=== PATIENT | female | born 1985 | race Hispanic/Latino ===

== ENCOUNTER → 2018-10-15 | Outpatient (REF) | payer BC ==
[~2018-10-15] MED LIST: AMOX/K CLAV875 M1 PO; CORTISPORIN OTI10 M2 AD; CYMBALTA30 MG PO; ERRIN0.35 MG PO; IBUPROFEN200 MG PO; INTEGRA F PO; LORTAB 7.57.5 MG/TAB OR; MACRODANTIN100 MG OR; NO HOME MEDS; PRENATAL1 TAB OR; ZOFRAN4 M1 OR; [UNRECOGNIZED DRUG - REMARK]
== END | disposition home or self-care (01) | DRG 607 ==
LOC: ULTRASND 13:26
PROVIDERS: ATTEND Internal Medicine
DX: R22.41 Localized swelling, mass and lump, right lower limb (principal)

== ENCOUNTER → 2018-10-25 | Outpatient (REF) | payer BC ==
[2018-10-25 10:11] VITALS: BP 121/73
== END | disposition home or self-care (01) | DRG 607 ==
LOC: FIORUCCI 09:44 → FIOURUCCI 09:45 → FIORUCCI 09:45
PROVIDERS: ATTEND Surgery
DX: R22.41 Localized swelling, mass and lump, right lower limb (principal)

== ENCOUNTER 2019-05-20 16:07 | Emergency (ER) | payer BC ==
[~2019-05-20] VITALS: Ht 157.5 cm; Wt 77.0 kg
[2019-05-20 18:04] VITALS: BP 126/82
== END 2019-05-20 18:04 | disposition home or self-care (01) | DRG 556 ==
LOC: ED 16:07
DX: M79.605 Pain in left leg (principal)

== ENCOUNTER 2021-05-25 10:05 | Emergency (ER) | payer BC ==
[~2021-05-25] VITALS: Ht 157.5 cm; Wt 70.5 kg
[2021-05-25 11:12] LABS: URINE BILIRUBIN - DIPSTICK NEGATIVE (NEGATIVE); URINE BLOOD DIPSTICK MODERATE (NEGATIVE); URINE COLOR YELLOW; URINE GLUCOSE - DIPSTICK NEGATIVE (NEGATIVE); URINE KETONE NEGATIVE (NEGATIVE); URINE LEUK ESTERASE NEGATIVE (NEGATIVE); URINE PROTEIN - DIPSTICK NEGATIVE (NEG-TRACE); URINE SPECIFIC GRAVITY <=1.005; URINE UROBILINOGEN - DIPSTICK 0.2 E.U./dL (0.2)
[2021-05-25 11:18] LABS: URINE NITRITE - DIPSTICK NEGATIVE (Negative)
[2021-05-25 11:19] LABS: URINE EPITHELIAL CELLS FEW EPI/hpf (0-FEW)
[2021-05-25 11:49] LABS: ALBUMIN 4.8 g/dL (3.2-5.0); ALKALINE PHOSPHATASE 72 u/l (38-126); AMYLASE 67 u/l (30-110); ANION GAP 16 (6-22 (CALC)); BUN 11 mg/dL (7-17); BUN/CREATININE RATIO 14 (12-20 (CALC)); CARBON DIOXIDE 26 mmol/l (22-30); CHLORIDE 99 mmol/l (95-108); CREATININE 0.8 mg/dL (0.5-1.0); GFR > 60 ML/MIN (>=60 (CALC)); GFR FOR AFR.AMER. > 60 ML/MIN (>=60 (CALC)); HEMATOCRIT 43.8 % (37.0-47.0); HEMOGLOBIN 14.6 g/dl (12.0-16.0); IMMATURE GRANULOCYTES 0.2 % (0.0-5.0); LIPASE 37 u/l (23-300); MEAN CELL VOLUME 90.3 fL CALC (80.0-100.0); MEAN CORPUSCULAR HGB 30.1 pG CALC (26.0-32.0); MEAN CORPUSCULAR HGB CONC 33.3 g/dL CAL (32.0-36.0); NEUT# 10.59 thou/uL (2.00-7.15); POTASSIUM 3.7 mmol/l (3.5-5.1); RED BLOOD COUNT 4.85 mill/uL (4.20-5.60); RED CELL DISTRI WIDTH 12.9 % (11.5-15.5); SGOT/AST 27 u/l (14-36); SODIUM 138 mmol/l (137-146); TOTAL PROTEIN 8.8 g/dL (6.3-8.2)
[2021-05-25 11:51] LABS: BILIRUBIN, TOTAL 0.8 mg/dL (0.0-1.4)
[2021-05-25] MEDS ORDERED: ULTRAM50 MG PO (13:09)
[2021-05-25] MEDS ORDERED: PROTONIX40 MG PO (13:09)
[2021-05-25] MEDS ORDERED: ZOFRAN4 MG/TAB PO (13:09)
[2021-05-25 13:37] VITALS: BP 111/73
== END 2021-05-25 13:11 | disposition home or self-care (01) | DRG 392 ==
LOC: ED 10:05
DX: K29.70 Gastritis, unspecified, without bleeding (principal); N83.201 Unspecified ovarian cyst, right side; R31.29 Other microscopic hematuria; Z97.5 Presence of (intrauterine) contraceptive device; Z20.822 Contact with and (suspected) exposure to COVID-19
CPT/HCPCS: Q9967